=== PATIENT | male | born 2005 | race Caucasian/White ===

== ENCOUNTER → 2025-02-18 | Outpatient (CLI) | payer OTHER ==
[~2025-02-18] MED LIST: ISOVUE-370 76% 100 ML VIAL ONE
== END ==
LOC: M PLAIMG 08:09
PROVIDERS: ATTEND Physician Assistant
DX: K40.90 Unilateral inguinal hernia, without obstruction or gangrene, not specified as recurrent (principal); R10.2 Pelvic and perineal pain
CPT/HCPCS: 74177; Q9967